=== PATIENT | female | born 1990 | race Caucasian/White ===

== ENCOUNTER 2019-02-21 05:23 | Inpatient (IN) ==
--- NOTE | 2019-02-20 13:57 | History & Physical Report ---
Date of Service February 20, 2019 Assessment & Plan (1) Breech presentation: For primary LTCS because of breech presentation. The procedure & risks were reviewed with the patient . All questions were answered. Present on Admission?: Yes (2) Supervision of normal first : History of Present Illness Primary Care Provider: NO PCP Patient is a white female EDC 02/17/19 who presents for primary LTCS for breech presentation noted on exam last week. no contractions or cramping at this time. uncomplicated otherwise. GBS-NEGATIVE, O POSITIVE Allergies Allergy/AdvReac Type Severity Reaction Status Date / Time amoxicillin Allergy Verified 02/20/19 10:04 cefaclor [From Ceclor] Allergy Verified 02/20/19 10:04 Home Medications Home Medications Medication Instructions Recorded Confirmed Type No Known Home Medications 02/17/19 02/20/19 History Patient History Medical History No known health problems Surgical History History of shoulder surgery right Social History Preferred Language: Sinhala Communication Ability: Effective Oxyhydrogen Welder Required: No Beliefs That Will Affect Care: None marital status: Current Living Situation: Spouse Feels Safe at Home: Yes Smoking Status: Never smoker Second Hand Exposure: No ; Hx Alcohol Use: No Hx Substance Use: No Review of Systems All systems reviewed & are unremarkable except as noted in HPI & below Physical Exam Constitutional: WD/WN, vitals as above Respiratory: normal respiratory effort, lungs clear to auscultation Cardiovascular: RRR, no murmur, no edema Extremities: no calf tenderness Gastrointestinal (Abdomen): normal bowel sounds, soft, nontender, no hepatosplenomegaly Psychiatric: A+Ox3, euthymic affect Genitourinary: OB Exam Abdomen: + fundal height (39), + vertex, + breech and + estimated weight (8-9 pounds) Manual OB Exam: + cervical dilation fingertip, + cervical effacement 50% and + station high OB Exam Monitor Tr acing: + external FHT monitor used, + external uterine monitor used, + category I and + normal FHT variability
[2019-02-21 05:43] LABS: Basophils # (auto) 0.02 K/uL (0-0.2); Basophils % (auto) 0.2 %; Eosinophils # (auto) 0.13 K/uL (0-0.5); Hematocrit (blood only) 34.6 % (37-47); Hemoglobin 11.7 g/dL (12.0-16.0); Immature Granulocytes # (auto) 0.06 K/uL (0.00-0.02); Immature Granulocytes % (auto) 0.5 %; Lymphocytes # (auto) 2.48 K/uL (1.2-3.4); Mean Corpuscular Hemoglobin 29.4 pg (25-34); Mean Corpuscular Volume 86.9 fL (80-100); Mean Platelet Volume 11.9 fL (7.4-10.4); Monocytes # (auto) 1.06 K/uL (0.11-0.59); Monocytes % (auto) 8.1 %; Neutrophils # (auto) 9.27 K/uL (1.4-6.5); Neutrophils % (auto) 71.2 %; Platelet Count 199 K/uL (130-400); RDW Coefficient of Variation 13.5 % (11.5-14.5); RDW Standard Deviation 42.9 fL (36.4-46.3); Red Blood Count 3.98 M/uL (4.2-5.4); White Blood Count 13.02 K/uL (4.8-10.8)
[2019-02-21] MEDS ORDERED: LACTATED RINGER'S 1,000 ML IV SCH ×4 (05:45→09:00)
[2019-02-21 05:58] LABS: Mean Corpuscular Hgb Conc 33.8 g/dL (32-36)
[2019-02-21] MEDS ORDERED: CITRIC ACID/SODIUM CITRATE 15 ML UDC PO SCH ×2 (06:00)
[2019-02-21] MEDS ORDERED: MoRPHine SULFATE PF 1 MG/ML 10 ML AMP/VIAL ONE (06:56)
[2019-02-21] MEDS ORDERED: fentaNYL citrate 100 MCG/2 ML VIAL ONE (06:56)
--- NOTE | 2019-02-21 07:01 | Anesthesiology Consultation ---
Date of Service February 21, 2019 Assessment & Plan (1) Encounter for pre-operative examination: Chart Review Chart Review: Acceptable Risk for Surgery and Patient NOT seen in Pre Admission Testing Consults Requested none History Surgery Operation Date: 02/21/19 07:30 Proposed Procedures p Section in LD - Shahida Benavidez MD, FACOG Height/Weight Height: 5 ft 4 in Weight: 90.718 kg Allergies Allergy/AdvReac Type Severity Reaction Status Date / Time amoxicillin Allergy Intermediate Hives Verified 02/21/19 05:35 cefaclor [From Ceclor] Allergy Intermediate Hives Verified 02/21/19 05:35 Medications Home Medications Medication Instructions Recorded Confirmed Last Taken No Known Home Medications 02/17/19 02/20/19 Unknown NPO Date Last Intake of Fluids: 02/20/19 Time Last Intake of Fluids: 20:00 Date Last Intake of Solids: 02/20/19 Time Last Intake of Solids: 20:00 Past Medical History Medical History No known health problems Exercise / Class Metabolic Activity II 4-5 Yardwork/Stairs/Walk up hill Past Family History Family History Father Heart disease Past Surgical History Surgical History History of shoulder surgery right Past Anesthesia History No Hx of Anesthesia Complications and No Family Hx of Anesthesia Complications History of PONV No Hx of PONV and No Hx of Motion Sickness Social History Smoking Status: Never smoker Do You Dip or Chew Tobacco: No Hx Alcohol Use: No Hx Substance Use: No substance use type: does not use Physical Exam Vital Signs Last Vital Signs Temp 36.8 C 02/21/19 05:36 Pulse 74 02/21/19 06:48 Resp 18 02/21/19 05:36 BP 146/86 H 02/21/19 06:48 Testing Laboratory Results 02/21/19 05:34 Blood Type O Positive 02/21/19 05:34 Antibody Screen NEGATIVE 02/21/19 05:34
[2019-02-21] MEDS ORDERED: CLINDAMYCIN 900 MG in DEXTROSE 5% 50 ML IV ONE (07:27)
--- NOTE | 2019-02-21 07:27 | History & Physical Bridge Note ---
Date of Service February 21, 2019 History & Physical Bridge Note I have examined the patient, reviewed the History & Physical and in the interval since the performance of the History & Physical I have noted the following changes of clinical significance: no changes noted
[2019-02-21] MEDS ORDERED: MoRPHine SULFATE 2 MG/ML CARP IV PRN (08:11)
[2019-02-21] MEDS ORDERED: NALOXONE HCL 0.4 MG/1 ML VIAL/CARP IV PRN (08:11)
[2019-02-21] MEDS ORDERED: ePHEDrine sulfate 50 MG/ML AMP IV PRN (08:11)
[2019-02-21] MEDS ORDERED: NALBUPHINE HCL INJ 10 MG/ML AMP IV PRN (08:11)
[2019-02-21] MEDS ORDERED: NALOXONE HCL 1 MG in SODIUM CHLORIDE 0.9% 1000ML 1,000 ML IV PRN (08:11)
[2019-02-21] MEDS ORDERED: NALOXONE HCL 0.08 MG in SYRINGE 1.8 ML IV PRN (08:11)
[2019-02-21] MEDS ORDERED: LACTATED RINGER'S 500 ML IV PRN (08:11)
[2019-02-21] MEDS ORDERED: HYDROmorphone INJ 0.5 MG/0.5 ML SYR IV PRN (08:11)
[2019-02-21] MEDS ORDERED: ONDANSETRON INJ 2 MG/ML 2 ML VIAL IV PRN (08:11)
[2019-02-21] MEDS ORDERED: MoRPHine SULFATE PF 1 MG/ML 10 ML AMP/VIAL INT SPINAL ONE (08:11)
[2019-02-21] MEDS ORDERED: SODIUM CHLORIDE 0.9% 1000ML 1,000 ML IV SCH (08:15)
[2019-02-21] MEDS ORDERED: DC INTRASPINAL MORPHINE SCH (08:15)
[2019-02-21] MEDS ORDERED: NO NARCOTICS OR SEDATIVES SCH (08:15)
[2019-02-21] MEDS ORDERED: ONDANSETRON INJ 2 MG/ML 2 ML VIAL ONE (08:41)
[2019-02-21] MEDS ORDERED: OXYTOCIN 10 UNITS/ML VIAL ONE (08:41)
[2019-02-21] MEDS ORDERED: PHENYLEPHRINE 100MCG/ML 5ML SYR ONE (08:41)
[2019-02-21] MEDS ORDERED: MAGNESIUM HYDROXIDE SUSP 30 ML UDC PO PRN (08:59)
[2019-02-21] MEDS ORDERED: PROMETHAZINE HCL 25 MG in SODIUM CHLORIDE 0.9% 50 ML IV PRN (08:59)
[2019-02-21] MEDS ORDERED: HYDROCORTISONE ACETATE 25 MG SUPP PR PRN (08:59)
[2019-02-21] MEDS ORDERED: DIPHTHERIA/TETANUS/PERTUSSIS 0.5 ML SYR/VIAL IM ONE (08:59)
[2019-02-21] MEDS ORDERED: SUPERCREAM 0.870% 15 GM JAR EXT PRN (08:59)
[2019-02-21] MEDS ORDERED: BENZOCAINE 20% AER SPR 82.5 GM CAN EXT PRN (08:59)
[2019-02-21] MEDS ORDERED: SENNA 8.6 MG TAB PO PRN (08:59)
--- NOTE | 2019-02-21 09:03 | Post Operative Brief Note ---
PG Immediate Post Op with CF Date of Surgery February 21, 2019 Pre & Post Diagnosis Operation Date: 02/21/19 07:30 Pre-Op Diagnosis: Breech presentation at term. Post-Op Diagnosis: Breech presentation at term. LMC born at 0826 stable condition to sanders. I identified the patient and participated in the time-out.: Yes Procedure Operation Date: 02/21/19 07:30 Actual Procedures p Section in LD - Shahida Benavidez MD, FACOG Surgeon Shahida Benavidez MD, FACOG Children'S Librarian Mary Ernandez MD Estimated Blood Loss 450 Findings Consistent with Post-Op Diagnosis Specimens Specimen Description: Placenta (Hold) Cord Blood Drains Valle Catheter
--- NOTE | 2019-02-21 09:13 | Anesthesiology Progress Note ---
Date of Service February 21, 2019 Anesthesia Post Procedure Vital Signs Vital Signs: Temp Pulse Resp BP Pulse Ox 02/21/19 09:08 83 131/77 100 02/21/19 07:07 94 H 20 152/93 H 02/21/19 07:06 89 137/93 02/21/19 06:48 74 146/86 H 02/21/19 06:33 75 139/88 02/21/19 06:18 80 140/86 02/21/19 06:03 76 146/107 H 02/21/19 05:49 88 135/108 H 02/21/19 05:48 83 139/109 H 02/21/19 05:36 36.8 C 18 02/21/19 05:32 88 156/102 H Transfer of Care Handoff Completed per policy Notes Mental Status: alert / awake / arousable Patient Amnestic to Procedure: No Nausea / Vomiting: adequately controlled Pain: adequately controlled Airway Patency, RR, SpO2: stable & adequate BP & HR: stable & adequate Hydration State: stable & adequate Neuraxial Anesthesia: was administered and sensory block is resolving Anesthetic Complications: no major complications apparent and Pt Satisfied with anesthetic care
[2019-02-21] MEDS ORDERED: OXYTOCIN 20 UNITS in LACTATED RINGER'S 1,000 ML IV SCH (10:00)
[2019-02-21] MEDS: KETOROLAC 30 MG/ML VIAL IV PRN (11:16)
[2019-02-21] MEDS: DiphenhydrAMINE HCL 50 MG/ML VIAL IV PRN ×2 (11:19→18:56)
[2019-02-21] MEDS: OXYTOCIN 20 UNITS in LACTATED RINGER'S 1,000 ML IV SCH ×2 (11:23→19:37)
--- NOTE | 2019-02-21 12:09 | Operative Report ---
DATE OF OPERATION: 02/21/2019 SURGEON: Shahida Bryson MD. SLIDE FASTENER REPAIRER: Mary Ernandez MD. PREOPERATIVE DIAGNOSES: Intrauterine at term with persistent breech presentation. POSTOPERATIVE DIAGNOSES: Intrauterine at term with persistent breech presentation, delivery of a viable male infant, 9 pounds 5 ounces. PROCEDURE: Primary low transverse section. ESTIMATED BLOOD LOSS: 450 mL. ANESTHESIA: Subarachnoid block. HISTORY: The patient is a 3, para 0-0-1-0 white female, EDC of 02/17/2019 who presents for primary section because of persistent breech presentation. The patient understands the risks of the procedure and is willing to proceed. GROSS FINDINGS: Uterus is gravid and consistent with a term in size. Bilateral ovaries and fallopian tubes are grossly normal. DESCRIPTION OF PROCEDURE: After the patient received adequate subarachnoid block, she was prepped and draped in usual sterile fashion. The low transverse skin incision was made with a scalpel and carried to the fascia with the same scalpel. The fascial incision was then extended with Medina scissors and the edges were then grasped with Nestor clamps and the underlying rectus muscles bluntly and sharply dissected off of the overlying fascia. The rectus muscles were divided in the midline and the underlying peritoneum elevated and entered bluntly. The bladder was then taken down off the anterior surface of the uterus and placed behind the bladder blade. This was done with Metzenbaum scissors. The lower uterine segment was entered with the scalpel and this incision was extended transversely. The membranes were ruptured for clear fluid. The was delivered from the kannan breech presentation with moderate fundal pressure. The was delivered to the head, nuchal arms were reduced and the rest of the baby delivered easily. Cord was clamped and cut and the was handed off to Dr. Tanner who was in attendance as clinical operations leader. There was spontaneous crying and the infant was moving all 4 limbs. The placenta was expressed intact with a 3-vessel cord. The uterus was then exteriorized and covered with a clean lap sponge. The uterine cavity was then explored and found to be free of any placental tissue or membranes. The uterus was closed in 2 layers in a running locking imbricating fashion with 0 Monocryl. Hemostasis was noted to be excellent. The posterior cul-de-sac was irrigated with normal saline. The incision was examined once more and continued to have excellent hemostasis. The uterus was placed back in the abdominal cavity. Hemostasis continued to be satisfactory. After the gutters were explored, the rectus muscles were brought together on the midline with individual stitches of 0 Monocryl. The fascia was closed in a running fashion with 0 Vicryl. After irrigating the adipose layer, the skin edges were reapproximated with a subcuticular stitch of 3-0 Vicryl. Urine was clear at the end of the case. Mother and were doing well on arrival in recovery. I attest to the content of the Intraoperative Record and any orders documented therein. Any exception s are noted below.
[2019-02-21] MEDS: SIMETHICONE 80 MG CHEW PO SCH ×3 (14:28→21:01)
[2019-02-21] MEDS: DOCUSATE SODIUM 100 MG CAP PO SCH (21:01)
[2019-02-22] MEDS: KETOROLAC 30 MG/ML VIAL IV PRN (02:01)
[2019-02-22] MEDS ORDERED: MEPERIDINE HCL 50 MG/ML CARP IV PRN (02:12)
[2019-02-22] MEDS ORDERED: KETOROLAC 30 MG/ML VIAL IV PRN (02:12)
[2019-02-22] MEDS ORDERED: ZOLPIDEM TARTRATE 5 MG TAB PO PRN (02:12)
[2019-02-22] MEDS ORDERED: ONDANSETRON INJ 2 MG/ML 2 ML VIAL IV PRN (02:12)
[2019-02-22] MEDS ORDERED: DiphenhydrAMINE HCL 50 MG/ML VIAL IV PRN (02:12)
[2019-02-22] MEDS ORDERED: OXYCODONE/ACETAMINOPHEN 5mg/325mg TAB PO PRN (02:12)
--- NOTE | 2019-02-22 06:22 | Obstetrical Progress Note ---
Date of Service <Gudelia Choi MD - Last Filed: 02/22/19 07:41> February 22, 2019 Assessment & Plan <Gudelia Choi MD - Last Filed: 02/22/19 07:41> (1) Encounter for postoperative care: - POD1 s/p C/S for breech presentation of . - doing well this morning - hg stable at 11.7 - not complaining of any pain or SOB - feels hot subjectively but afebrile - passed gas but no urination yet - tolerating oral intake of regular diet - Day #:: 1 Subjective <Gudelia Choi MD - Last Filed: 02/22/19 07:41> Ambulation: ambulating normally Voiding: voiding difficulty (Has not voided yet) Passing Gas:: Yes Diet Tolerance:: regular diet Feeding Type:: breast feeding Current Pain Level(1-10): 0 Constitutional: + fatigue; no fever and no chills Respiratory: no cough and no dyspnea No shortness of breath Cardiovascular: no chest pain, no syncope, no edema and no calf pain Breast: no breast pain Gastrointestinal: no abdominal pain, no nausea, no vomiting, no cramping, no constipation and no diarrhea/loose stools Genitourinary (female): no dysuria and no difficulty urinating Neurologic: no headache(s) Physical Exam <Gudelia Choi MD - Last Filed: 02/22/19 07:41> Constitutional well developed and well nourished Respiratory normal respiratory effort; no respiratory distress, no labored breathing and no cough Auscultation: no crackles, no rales, no rhonchi and no wheezes Cardiovascular Rate/Rhythm: regular rate and regular rhythm Heart Sounds: no gallop, no murmur and no cardiac rub Extremities: no pedal edema Gastrointestinal (Abdomen) Inspection/Auscultation: + abdomen distended and normal bowel sounds Percussion/Palpation: + abdomen tender and abdomen soft; no guarding Skin C/S incision appears to be healing well. Intact, no fluid or bloody leakage. Mildly tender to palpation around scar. Results & Data <Gudelia Choi MD - Last Filed: 02/22/19 07:41> Vital Signs (Past 12 Hours) Vital Signs Temp Pulse Resp BP Pulse Ox 02/22/19 03:00 37.2 C 82 16 111/76 97 02/21/19 23:15 37.3 C 87 16 117/78 96 02/21/19 22:50 18 96 02/21/19 21:44 18 96 02/21/19 20:46 20 98 02/21/19 19:40 37.3 C 89 20 127/76 96 <Shahida Benavidez MD, FACOG - Last Filed: 02/22/19 08:51> Co-Signing Physician Notes Resident Physician Supervision Note: I interviewed and examined the patient. Discussed with Dr. Choi and agree with findings and plan as documented in the note. Any exceptions or clarifications are listed here: [None] Documented By: Shahida Benavidez MD, FACOG
[2019-02-22 06:33] LABS: Basophils # (auto) 0.01 K/uL (0-0.2); Basophils % (auto) 0.1 %; Eosinophils % (auto) 0.7 %; Hematocrit (blood only) 28.5 % (37-47); Hemoglobin 9.9 g/dL (12.0-16.0); Immature Granulocytes # (auto) 0.05 K/uL (0.00-0.02); Immature Granulocytes % (auto) 0.3 %; Lymphocytes # (auto) 1.61 K/uL (1.2-3.4); Lymphocytes % (auto) 11.1 %; Mean Corpuscular Hemoglobin 30.1 pg (25-34); Mean Corpuscular Hgb Conc 34.7 g/dL (32-36); Mean Corpuscular Volume 86.6 fL (80-100); Mean Platelet Volume 11.9 fL (7.4-10.4); Monocytes # (auto) 1.02 K/uL (0.11-0.59); Monocytes % (auto) 7.1 %; Neutrophils # (auto) 11.67 K/uL (1.4-6.5); Neutrophils % (auto) 80.7 %; Platelet Count 158 K/uL (130-400); RDW Coefficient of Variation 13.7 % (11.5-14.5); RDW Standard Deviation 43.1 fL (36.4-46.3); Red Blood Count 3.29 M/uL (4.2-5.4); White Blood Count 14.46 K/uL (4.8-10.8)
[2019-02-22] MEDS: FERROUS SULFATE 325 MG TAB PO SCH (07:57)
[2019-02-22] MEDS: PRENATAL VITAMIN 1 TAB PO SCH (07:57)
[2019-02-22] MEDS: DOCUSATE SODIUM 100 MG CAP PO SCH ×2 (07:58→20:39)
[2019-02-22] MEDS: SIMETHICONE 80 MG CHEW PO SCH ×4 (07:58→20:40)
[2019-02-22] MEDS: IBUPROFEN 600 MG TAB PO PRN ×2 (10:39→18:42)
--- NOTE | 2019-02-22 11:04 | Anesthesiology Progress Note ---
Date of Service February 22, 2019 Anesthesia Post Procedure Vital Signs Vital Signs: Temp Pulse Pulse Resp BP BP Pulse Ox 02/22/19 07:48 98.4 F 86 16 125/85 98 02/22/19 03:00 99.0 F 82 16 111/76 97 02/21/19 23:15 99.1 F 87 16 117/78 96 02/21/19 22:50 18 96 02/21/19 21:44 18 96 02/21/19 20:46 20 98 02/21/19 19:40 99.1 F 89 20 127/76 96 02/21/19 18:04 20 96 02/21/19 17:21 18 98 02/21/19 16:45 18 97 02/21/19 15:29 20 98 02/21/19 14:35 73 18 131/83 98 02/21/19 13:35 80 18 127/81 94 02/21/19 12:35 76 18 131/84 99 02/21/19 12:05 80 18 154/96 H 100 02/21/19 11:38 98.2 F 76 16 148/95 H 100 02/21/19 11:23 83 100 02/21/19 11:20 75 145/78 H 02/21/19 11:18 80 100 02/21/19 11:13 82 100 02/21/19 11:08 75 126/68 99 Transfer of Care Handoff Completed per policy Notes Mental Status: alert / awake / arousable and participated in evaluation Nausea / Vomiting: adequately controlled Pain: adequately controlled Airway Patency, RR, SpO2: stable & adequate BP & HR: stable & adequate Hydration State: stable & adequate Neuraxial Anesthesia: was administered and sensory block resolved Anesthetic Complications: no major complications apparent and Pt Satisfied with anesthetic care
[2019-02-22] MEDS ORDERED: bisacodyL 5 MG TABEC PO SCH (20:00)
[2019-02-23] MEDS: IBUPROFEN 600 MG TAB PO PRN ×2 (02:58→08:12)
[2019-02-23] MEDS: ACETAMINOPHEN 500 MG TAB PO PRN ×2 (03:46→08:13)
--- NOTE | 2019-02-23 06:34 | Obstetrical Progress Note ---
Date of Service <Gudelia Choi MD - Last Filed: 02/23/19 08:10> February 23, 2019 Assessment & Plan <Gudelia Choi MD - Last Filed: 02/23/19 08:10> (1) Encounter for postoperative care: 28 yo POD2 after LTCS for breech presentation. Doing well this AM, no acute complaints. Continue supportive care as needed. Day #:: 2 Subjective <Gudelia Choi MD - Last Filed: 02/23/19 08:10> Ambulation: ambulating normally Voiding: no voiding problems Passing Gas:: Yes Diet Tolerance:: regular diet Feeding Type:: breast feeding Current Pain Level(1-10): 0 28 yo POD2 after LTCS for breech presentation. Doing well this AM, no acute complaints. Constitutional: + fatigue; no fever and no chills Respiratory: no cough and no dyspnea No shortness of breath Cardiovascular: + edema; no chest pain, no syncope and no calf pain Breast: no breast pain Gastrointestinal: + cramping; no abdominal pain, no nausea, no vomiting, no constipation and no diarrhea/loose stools Genitourinary (female): no dysuria and no difficulty urinating Neurologic: no headache(s) Physical Exam <Gudelia Choi MD - Last Filed: 02/23/19 08:10> Constitutional well developed and well nourished Respiratory normal respiratory effort; no respiratory distress, no labored breathing and no cough Auscultation: no crackles, no rales, no rhonchi and no wheezes Cardiovascular Rate/Rhythm: regular rate and regular rhythm Heart Sounds: no gallop, no murmur and no cardiac rub Extremities: + pedal edema Gastrointestinal (Abdomen) Inspection/Auscultation: + abdomen distended and normal bowel sounds Percussion/Palpation: + abdomen tender and abdomen soft; no guarding Skin C/S incision appears to be healing well. No erythema around incision. Intact, no fluid or bloody leakage. Mildly tender to palpation around scar. Genitourinary Uterus firm, palpable at right of umbilicus, some tenderness to palpation. Results & Data <Gudelia Choi MD - Last Filed: 02/23/19 08:10> Vital Signs (Past 12 Hours) Vital Signs Temp Pulse Resp BP Pulse Ox 02/23/19 00:03 36.8 C 74 16 135/86 97 <Bren Martínez MD, FACOG - Last Filed: 02/23/19 08:24> Co-Signing Physician Notes Resident Physician Supervision Note: I was present with Dr. Choi during the history and exam. I discussed the case with the resident and agree with the findings and plan as documented in the note. Any exceptions or clarifications are listed here: doing well, eating, drinking, voiding, +flatus, pain well controlled. ff 2 down nt, incision c/d/i, reviewed d/c instructions and sent script. enc routine care but she may request d/c later today. . Documented By: Bren Martínez MD, FACOG
[2019-02-23 06:54] LABS: Hematocrit (blood only) 29.3 % (37-47); Hemoglobin 9.9 g/dL (12.0-16.0)
[2019-02-23] MEDS: DOCUSATE SODIUM 100 MG CAP PO SCH (08:12)
[2019-02-23] MEDS: SIMETHICONE 80 MG CHEW PO SCH (08:12)
[2019-02-23] MEDS: FERROUS SULFATE 325 MG TAB PO SCH (08:12)
[2019-02-23] MEDS: PRENATAL VITAMIN 1 TAB PO SCH (08:12)
[2019-02-23 08:54] VITALS: O2SAT 98
[2019-02-23] MEDS ORDERED: bisacodyL 10 MG SUPP PR PRN (08:59)
[2019-02-23 16:55] VITALS: BP 139/74; PULSE 74; TEMP 98.1
--- NOTE | 2019-02-24 20:43 | Discharge Summary ---
PRINCIPAL DIAGNOSIS: Intrauterine at term with persistent breech presentation. PRINCIPAL PROCEDURE: A primary low transverse section for delivery of a viable male infant, 9 pounds 5 ounces. HISTORY: The patient is a 2, para 0-0-1-0 white female, EDC of 02/17/2019, who presented for primary section because of persistent breech presentation. This was done without any complications. The patient had an uncomplicated postop course. She was afebrile throughout her hospital stay. She was eating a regular diet, voiding and ambulating without difficulty on her 1st postop day. Hemoglobin on admission was 11.7, hematocrit 34.6; first postop day hemoglobin 9.9, hematocrit 28.5; second postop day hemoglobin 9.9, hematocrit 29.3. She was sent home in good condition with prescriptions for Percocet 1 or 2 tablets p.o. q. 4 hours p.r.n. pain and ibuprofen 600 mg p.o. q. 4 hours p.r.n. pain. She is to be seen in the office in 6 weeks for followup visit. She is to call for a temperature of 101 degrees or higher, heavy vaginal bleeding, burning with urination, increased redness, drainage or pain in her incision, calf tenderness, or any other concerns.
== END 2019-02-23 17:02 | disposition home or self-care (01) | DRG 788 ==
LOC: 4S1 05:23 → EDSTATUS 07:30 → 4S2 11:40

== ENCOUNTER 2022-09-18 05:28 | Inpatient (IN) ==
--- NOTE | 2022-09-09 10:59 | Anesthesiology Consultation ---
Date of Service September 09, 2022 Assessment & Plan (1) Encounter for pre-operative examination: - 02/21/19 SAB L4-L5 1 attempt. - COVID screening: Per level vial inspector on 09/09/2022: Travel screen negative, no known COVID-19 positive contacts or current COVID-19 related symptoms in past 2 weeks. To surgeon's discretion if preop COVID testing is needed. Chart Review Chart Review: Acceptable Risk for Surgery and Patient NOT seen in Pre Admission Testing History Surgery Operation Date: 09/18/22 07:30 Proposed Procedures p Section in LD (Delivery of Baby through Abdominal Incision) - Brooks Snell MD Height/Weight Height: 5 ft 5 in Weight: 91.626 kg Allergies Allergy/AdvReac Type Severity Reaction Status Date / Time amoxicillin Allergy Intermediate Hives Verified 09/09/22 10:14 cefaclor [From Ceclor] Allergy Intermediate Hives Verified 09/09/22 10:14 Medications Home Medications Medication Instructions Recorded Confirmed Last Taken prenat.vits,demetria,ipq-tnne-adpml 1 tab PO DAILY 02/03/22 09/09/22 Unknown acetone (urine) test (Ketone Urine #50 ea 07/20/22 09/02/22 Unknown Test strips) blood sugar diagnostic (OneTouch #150 ea 07/20/22 09/02/22 Unknown Verio test strips) blood-glucose meter (OneTouch #1 ea 07/20/22 09/02/22 Unknown Verio Reflect Meter) lancets 33 gauge (OneTouch Delica #150 ea 07/20/22 09/02/22 Unknown Lancets) Past Medical History Medical History (Updated 09/09/22 @ 10:56 by Olivia Reid PA-C) Gestational diabetes History of chicken pox Past Family History Family History Father Heart disease Other No family history of adverse response to anesthesia Denies family history of Ovarian cancer Breast cancer Colorectal cancer Past Surgical History Surgical History History of shoulder surgery RT S/P section X 1 Social History Smoking Status: Never smoker Do You Dip or Chew Tobacco: No Hx Alcohol Use: No Hx Substance Use: No substance use type: does not use
[2022-09-18] MEDS ORDERED: CITRIC ACID/SODIUM CITRATE 15 ML UDC PO SCH (06:00)
[2022-09-18] MEDS ORDERED: LACTATED RINGER'S 1,000 ML IV SCH ×2 (06:00→08:15)
[2022-09-18] MEDS ORDERED: CLINDA 900 MG **Premixed Bag IV SCH (06:00)
[2022-09-18] MEDS ORDERED: GENTAMICIN SULFATE 460 MG in DEXTROSE 5% 100 ML IV SCH (06:00)
[2022-09-18 06:27] LABS: Hematocrit (blood only) 34.2 % (37.0-47.0); Hemoglobin 11.6 g/dl (12.0-16.0); Mean Corpuscular Hemoglobin 29.9 pg (25.0-34.0); Mean Corpuscular Hgb Conc 33.9 g/dL (32.0-36.0); Mean Corpuscular Volume 88.1 fL (80.0-100.0); Mean Platelet Volume 12.3 fL (9.4-12.4); Platelet Count 214 K/uL (130-400); RDW Coefficient of Variation 13.2 % (11.5-14.5); RDW Standard Deviation 41.5 fL (36.4-46.3); Red Blood Count 3.88 M/uL (4.20-5.40); White Blood Count 13.69 K/ul (4.8-10.8)
[2022-09-18] MEDS ORDERED: OXYTOCIN 10 UNITS/ML 10ML VIAL ONE (06:46)
[2022-09-18] MEDS ORDERED: fentaNYL citrate PF 100 MCG/2 ML VIAL ONE (06:46)
[2022-09-18] MEDS ORDERED: PHENYLEPHRINE 100MCG/ML 5ML SYR ONE (06:46)
[2022-09-18] MEDS ORDERED: ONDANSETRON INJ 2 MG/ML 2 ML VIAL ONE (06:46)
[2022-09-18] MEDS ORDERED: MoRPHine SULFATE PF 1 MG/ML 10 ML AMP/VIAL ONE (06:46)
--- NOTE | 2022-09-18 07:31 | History & Physical Report ---
Date of Service September 18, 2022 Assessment & Plan (1) Supervision of normal first : Plan: Barb is a 32yo at 40w3d presents for repeat LTCS. 1. Fetus: Cat 1 2. Delivery: consents reviewed and signed yesterday 3. Vitals: WNL (2) Gestational diabetes: Admission and Anticipated Discharge Date Admission Date: September 18, 2022 History of Present Illness Primary Care Provider: NO PCP Barb is a 32yo at 40w3d presents for repeat LTCS. complications: Previous (breech) - C/S SCHEDULED FOR 09/18/[address] NOE VIVAS - Gestational Diabetes Growth u/s's q 4 weeks Allergies Allergy/AdvReac Type Severity Reaction Status Date / Time amoxicillin Allergy Intermediate Hives Verified 09/18/22 05:39 cefaclor [From Ceclor] Allergy Intermediate Hives Verified 09/18/22 05:39 Home Medications Medication Instructions Recorded Confirmed Type prenat.vits,demetria,obh-fnik-azxvn 1 tab PO DAILY 02/03/22 09/17/22 History acetone (urine) test (Ketone Urine #50 ea 07/20/22 09/17/22 Rx Test strips) blood sugar diagnostic (OneTouch #150 ea 07/20/22 09/17/22 Rx Verio test strips) blood-glucose meter (OneTouch #1 ea 07/20/22 09/17/22 Rx Verio Reflect Meter) lancets 33 gauge (OneTouch Delica #150 ea 07/20/22 09/17/22 Rx Lancets) Patient History Medical History Breech presentation Gestational diabetes History of chicken pox Surgical History History of shoulder surgery RT S/P section X 1 Family History Father Heart disease Other No family history of adverse response to anesthesia Denies family history of Ovarian cancer Breast cancer Colorectal cancer Social History (Updated 02/03/22 @ 13:34 by Christina Calloway) Smoking Status: Never smoker Second Hand Exposure: No; Do You Dip or Chew Tobacco: No; Hx Alcohol Use: No Hx Substance Use: No Preferred Language: Cymro Communication Ability: Effective Instrumentation Tech Required: No Beliefs That Will Affect Care: None marital status: marital status details: Anup Carter (30) [phone] Current Living Situation: Spouse and Family Current Living Situation Comment: 3.5 year old son Rizwan current occupational status: employed current occupation: [employer] Other Information That Helps Us Care for You: No Feels Safe at Home: Yes Safety Concerns: Feels Safe At This Time Assistive Devices: None Physical Exam Respiratory: normal respiratory effort, + respiratory distress and + labored breathing; no retractions Cardiovascular: Rate/Rhythm: regular rate Gastrointestinal (Abdomen): Inspection/Auscultation: abdomen normal to inspection; abdomen not distended Genitourinary: normal external appearance OB Exam Abdomen: + vertex Results & Data Vital Signs (Past 12 Hours) Vital Signs Temp Pulse Resp BP 09/18/22 06:23 79 128/82 09/18/22 06:14 36.8 C 70 20 140/86 09/18/22 05:44 85 150/90 H 09/18/22 05:39 36.8 C 85 20 150/90 H Code Status & VTE Plan VTE Prophylaxis Plan VTE Prophylaxis will be ordered: No Reason for no VTE drug order: Treatment not indicated Coding Level of Care Code None Diagnoses Supervision of normal first Z34.00 Gestational diabetes O24.419
[2022-09-18] MEDS ORDERED: MoRPHine SULFATE PF 1 MG/ML 10 ML AMP/VIAL INT SPINAL ONE (07:59)
[2022-09-18] MEDS ORDERED: NALOXONE HCL 0.08 MG in SYRINGE 1.8 ML IV PRN (07:59)
[2022-09-18] MEDS ORDERED: ePHEDrine sulfate 50 MG/ML AMP IV PRN (07:59)
[2022-09-18] MEDS ORDERED: PROMETHAZINE HCL 6.25 MG in SODIUM CHLORIDE 0.9% 50 ML IV PRN (07:59)
[2022-09-18] MEDS ORDERED: LACTATED RINGER'S 500 ML IV PRN (07:59)
[2022-09-18] MEDS ORDERED: NALOXONE HCL 1 MG in SODIUM CHLORIDE 0.9% 1000ML 1,000 ML IV PRN (07:59)
[2022-09-18] MEDS ORDERED: NALOXONE HCL 0.4 MG/1 ML VIAL/CARP IV PRN (07:59)
[2022-09-18] MEDS ORDERED: KETOROLAC 30 MG/ML VIAL IV PRN (07:59)
[2022-09-18] MEDS ORDERED: HYDROmorphone INJ 0.5 MG/0.5 ML SYR IV PRN (07:59)
[2022-09-18] MEDS ORDERED: diphenhydrAMINE 50 MG/ML VIAL IV PRN (07:59)
[2022-09-18] MEDS ORDERED: ONDANSETRON INJ 2 MG/ML 2 ML VIAL IV PRN (08:00)
[2022-09-18] MEDS ORDERED: DC INTRASPINAL MORPHINE SCH (08:00)
[2022-09-18] MEDS ORDERED: NO NARCOTICS OR SEDATIVES SCH (08:00)
[2022-09-18] MEDS ORDERED: SODIUM CHLORIDE 0.9% 1000ML 1,000 ML IV SCH (08:00)
[2022-09-18] MEDS ORDERED: BENZOCAINE 20% AER SPR 82.5 GM CAN EXT PRN (08:15)
[2022-09-18] MEDS ORDERED: MAGNESIUM HYDROXIDE SUSP 30 ML UDC PO PRN (08:15)
[2022-09-18] MEDS ORDERED: HYDROCORTISONE ACETATE 25 MG SUPP PR PRN (08:15)
[2022-09-18] MEDS ORDERED: DIPHTHERIA/TETANUS/PERTUSSIS Vaccine (Tdap, Age 7+yrs) 0.5mL SYR/VL IM ONE (08:15)
[2022-09-18] MEDS ORDERED: SENNA 8.6 MG TAB PO PRN (08:15)
--- NOTE | 2022-09-18 08:59 | Anesthesiology Progress Note ---
Date of Service September 18, 2022 Anesthesia Post Procedure Vital Signs Vital Signs: Temp Pulse Resp BP Pulse Ox 09/18/22 08:55 58 L 18 100 09/18/22 08:46 36.6 C 81 18 99 09/18/22 08:53 58 L 100 09/18/22 08:48 73 95 09/18/22 08:49 73 94 09/18/22 08:46 72 133/75 09/18/22 08:43 99 09/18/22 08:43 81 09/18/22 08:43 72 93 09/18/22 08:38 79 92 09/18/22 08:36 71 93 09/18/22 08:34 68 135/93 09/18/22 08:33 70 95 09/18/22 07:14 18 09/18/22 07:14 18 09/18/22 06:23 79 128/82 09/18/22 06:14 36.8 C 70 20 140/86 09/18/22 05:44 85 150/90 H 09/18/22 05:39 36.8 C 85 20 150/90 H Transfer of Care Handoff Completed per policy Notes Mental Status: alert / awake / arousable and participated in evaluation Patient Amnestic to Procedure: No Nausea / Vomiting: adequately controlled Pain: adequately controlled Airway Patency, RR, SpO2: stable & adequate BP & HR: stable & adequate Hydration State: stable & adequate Neuraxial Anesthesia: was administered and sensory block is resolving Anesthetic Complications: no major complications apparent and Pt Satisfied with anesthetic care
--- NOTE | 2022-09-18 09:10 | Post Operative Brief Note ---
PG Immediate Post Op with CF Date of Surgery September 18, 2022 Pre & Post Diagnosis Operation Date: 09/18/22 07:30 Pre-Op Diagnosis: Hx of Section Post-Op Diagnosis: Hx of Section I identified the patient and participated in the time-out.: Yes Procedure Operation Date: 09/18/22 07:30 Actual Procedures p Section in LD - Brooks Snell MD Surgeon Brooks Snell MD Flue Lining Dipper Dr. Ernandez Estimated Blood Loss 500 Findings Consistent with Post-Op Diagnosis Specimens Specimen Description: A) placenta Drains Valle Catheter (draining and anesthesia monitoring output during procedure ) OB Procedure charges OB Charges 47800
--- NOTE | 2022-09-18 09:48 | Operative Report (OR) ---
DATE OF SERVICE: 09/18/2022 PROCEDURE: Repeat low transverse section. PREOPERATIVE DIAGNOSES: 1. Term at 40 weeks 3 days gestational age. 2. History of section x1. 3. Gestational diabetes. POSTOPERATIVE DIAGNOSES: 1. Term at 40 weeks 3 days gestational age. 2. History of section x1. 3. Gestational diabetes. 4. Status post procedure. ESTIMATED BLOOD LOSS: 500 mL. DRAINS: Valle catheter. FLUIDS: Continuous lactated Ringer. URINE OUTPUT: Per Valle catheter. COMPLICATIONS: None. DESCRIPTION OF PROCEDURE: The patient was taken to the operating room after consents were ensured. Upon presentation, she was properly identified. Spinal anesthesia was obtained without difficulty. The patient was then prepped and draped in normal sterile fashion. Preprocedural time-out was perfor med. A Pfannenstiel incision was then made with a knife. This was carried down to underlying fascia with the Bovie. The fascia was nicked at the midline with a knife and extended laterally with milvia ps and Medina scissors. The superior aspect of the fascia was grasped with Kochmyah x2, elevated off th e underlying rectus muscles using blunt dissection and Medina scissors. The inferior aspect of the fas toya was grasped with Kochers x2, elevated off the underlying rectus muscles using blunt dissection. The midline was then entered bluntly, placed on stretch to provide adequate room for delivery. The b ladder flap was inserted and a low transverse uterine incision was then made with a knife. Head of t he was noted to be in cephalic position, delivered through the hysterotomy. Body and shoulder s quickly followed. was noted to be vigorous soon after delivery. Cord was double clamped a nd cut. was taken to the waiting nursery staff for evaluation. Cord segment and cord blood were obtained. Attention was then turned to delivery of the placenta, which was delivered intact, 3- vessel cord, gentle cord traction and uterine massage. Uterus was exteriorized, wrapped in a wet lap . Several passes were made with a dry lap to remove any remaining membranes. The hysterotomy was nati pproximated with 0 Vicryl continuous running locked stitch. A second imbricating layer was performed . Several [id number] were used to achieve hemostasis. Posterior cul-de-sac cleaned of clots a nd debris. Uterus returned to maternal abdomen. Right and left pericolic gutters were cleaned of cl ots and debris. The fascia was then reapproximated with 0 Vicryl continuous running stitch. The sub cutaneous layers were inspected and noted to be hemostatic. The subcutaneous layers were reapproxima shanna with 2-0 plain with continuous running stitch. The skin was reapproximated with 3-0 Vicryl with a continuous subcuticular stitch. Dermabond placed on top. Needle, sponge, and instrument counts we re correct at the completion of the case. Both mother and stable in the immediate post-deliv luz elena period. Job ID: [id number]
[2022-09-18] MEDS: OXYTOCIN 20 UNITS in LACTATED RINGER'S 1,000 ML IV SCH ×2 (11:11→19:06)
[2022-09-18] MEDS: NALBUPHINE HCL INJ 10 MG/ML AMP IV PRN ×2 (12:13→19:10)
[2022-09-18] MEDS: SIMETHICONE 80 MG CHEW PO SCH ×2 (17:50→20:55)
[2022-09-18] MEDS: DOCUSATE SODIUM 100 MG CAP PO SCH (20:55)
[2022-09-19] MEDS ORDERED: ONDANSETRON INJ 2 MG/ML 2 ML VIAL IV PRN (01:59)
[2022-09-19] MEDS ORDERED: diphenhydrAMINE 50 MG/ML VIAL IV PRN (01:59)
[2022-09-19] MEDS ORDERED: PROMETHAZINE HCL 25 MG in SODIUM CHLORIDE 0.9% 50 ML IV PRN (01:59)
[2022-09-19] MEDS ORDERED: KETOROLAC 30 MG/ML VIAL IV PRN (01:59)
[2022-09-19] MEDS ORDERED: MEPERIDINE HCL 50 MG/ML CARP IV PRN (01:59)
[2022-09-19] MEDS ORDERED: diphenhydrAMINE Capsule 25 MG CAP PO PRN (01:59)
[2022-09-19] MEDS: IBUPROFEN 600 MG TAB PO PRN ×2 (06:15→14:05)
[2022-09-19] MEDS: oxyCODONE/ACETAMINOPHEN 5mg/325mg TAB PO PRN ×2 (06:15→14:04)
[2022-09-19 07:07] LABS: Basophils # (auto) 0.02 K/uL (0-0.2); Basophils % (auto) 0.2 %; Eosinophils # (auto) 0.11 K/uL (0-0.50); Eosinophils % (auto) 0.8 %; Hematocrit (blood only) 31.7 % (37.0-47.0); Hemoglobin 10.9 g/dl (12.0-16.0); Immature Granulocytes # (auto) 0.05 K/uL (0.01-0.20); Immature Granulocytes % (auto) 0.4 %; Lymphocytes # (auto) 1.35 K/uL (1.2-3.4); Lymphocytes % (auto) 10.3 %; Mean Corpuscular Hemoglobin 29.8 pg (25.0-34.0); Mean Corpuscular Hgb Conc 34.4 g/dL (32.0-36.0); Mean Corpuscular Volume 86.6 fL (80.0-100.0); Mean Platelet Volume 12.3 fL (9.4-12.4); Monocytes # (auto) 0.84 K/uL (0.11-0.59); Monocytes % (auto) 6.4 %; Neutrophils # (auto) 10.76 K/uL (1.40-6.50); Neutrophils % (auto) 81.9 %; Platelet Count 179 K/uL (130-400); RDW Coefficient of Variation 13.1 % (11.5-14.5); RDW Standard Deviation 40.9 fL (36.4-46.3); Red Blood Count 3.66 M/uL (4.20-5.40); White Blood Count 13.13 K/ul (4.8-10.8)
--- NOTE | 2022-09-19 07:24 | Obstetrical Progress Note ---
Date of Service <Cora EDaniel Khan DO - Last Filed: 09/19/22 07:36> September 19, 2022 Assessment & Plan <Cora GastelumDaniel Khan DO - Last Filed: 09/19/22 07:36> (1) care following delivery: Patient is PPD 1 s/p repeat C section and doing well. - Eating well, voiding well, ambulating well - Vitals reviewed and within normal limits - Pain well controlled with analgesics - OOB, ambulation, diet progression as tolerated - Blood type: O+, GBS neg, rubella immune - Plan to discharge tomorrow - After discharge, [address] up [address] Dr[address] Snell <Brooks Snell MD - Last Filed: 09/19/22 08:04> (1) care following delivery: Subjective <Cora Quinonez DO Bill - Last Filed: 09/19/22 07:36> Patient is a 32 yo female is POD #1 following delivery at 40 3/7 weeks. She reports feeling well overall this morning. She endorses abdominal cramping and pain. She has not taken pain medications yet but plans to. Has not voided yet but feels as though she needs to. Tolerating fluids overnight (will try regular breakfast this AM) and able to ambulate to the bathroom. She has passed gas. Persistent lochia with some improvement this morning. Currently breast feeding. Review of Systems Denies fever, chills, sweats. Denies SOB, difficulty breathing, chest pain, palpitations, and chest pressure. Denies breast pain. Denies dysuria. Denies headache or changes in vision. Physical Exam <Cora Devi Khan DO - Last Filed: 09/19/22 07:36> General: Alert and oriented. No acute distress. CV: Regular rate and rhythm. No murmurs. Respiratory: CTA bilaterally. No rhonchi, wheezes, or crackles. No increased work of breathing. Abdomen: Positive bowel sounds. Soft, nontender, and nondistended. Uterus: Fundus firm and palpable 3 cm below umbilicus. Surgical scar clean and healing well. Lower extremities: No LE edema. No deep calf pain. Results & Data <Cora Khan DO - Last Filed: 09/19/22 07:36> Vital Signs (Past 12 Hours) Vital Signs Temp Pulse Resp BP Pulse Ox O2 Del Method 09/19/22 03:15 37.1 C 92 H 18 113/75 97 Room Air 09/19/22 02:00 18 97 09/19/22 00:00 18 96 09/18/22 23:00 18 96 09/18/22 23:00 37.1 C 86 18 107/68 96 Room Air 09/18/22 22:00 18 97 09/18/22 21:00 18 97 09/18/22 20:00 18 98 <Brooks Snell MD - Last Filed: 09/19/22 08:04> Co-Signing Physician Notes Patient seen with resident and agree with the above findings and plan. Routine care Resident Activity Tracking <Cora Khan DO - Last Filed: 09/19/22 07:36> Resident Involvement: Resident Care Provided Care Provided: OB Delivery
[2022-09-19] MEDS: PRENATAL VITAMIN 1 TAB PO SCH (08:45)
[2022-09-19] MEDS: FERROUS SULFATE 325 MG TAB PO SCH (08:45)
[2022-09-19] MEDS: SIMETHICONE 80 MG CHEW PO SCH ×3 (08:45→21:25)
[2022-09-19] MEDS: DOCUSATE SODIUM 100 MG CAP PO SCH ×2 (08:45→21:25)
[2022-09-19] MEDS ORDERED: bisacodyL 5 MG TABEC PO SCH (20:00)
[2022-09-20 06:36] LABS: Hematocrit (blood only) 32.6 % (37.0-47.0)
[2022-09-20] MEDS: PRENATAL VITAMIN 1 TAB PO SCH (07:45)
[2022-09-20] MEDS: FERROUS SULFATE 325 MG TAB PO SCH (07:45)
[2022-09-20] MEDS: oxyCODONE/ACETAMINOPHEN 5mg/325mg TAB PO PRN (07:45)
[2022-09-20] MEDS: DOCUSATE SODIUM 100 MG CAP PO SCH (07:45)
[2022-09-20] MEDS: SIMETHICONE 80 MG CHEW PO SCH (07:45)
[2022-09-20] MEDS: IBUPROFEN 600 MG TAB PO PRN (07:46)
[2022-09-20] MEDS ORDERED: bisacodyL 10 MG SUPP PR PRN (08:15)
--- NOTE | 2022-09-20 08:46 | Obstetrical Progress Note ---
Date of Service September 20, 2022 Assessment & Plan (1) care following delivery: Recovering well from RCS, feels ready to go home today, instructions reviewed and questions answered. Subjective Ambulation: ambulating normally Voiding: no voiding problems Passing Gas:: Yes Diet Tolerance:: regular diet Lochia:: Small Feeding Type:: breast feeding Physical Exam Constitutional WD/WN, vitals as above Eyes PERRL, conjunctivae normal, anicteric sclerae Neck normal visual inspection Respiratory normal respiratory effort and able to speak in complete sentences; no respiratory distress and no labored breathing Cardiovascular Rate/Rhythm: regular rate and regular rhythm Extremities: no edema Chest (Breasts) Chest: normal inspection of chest Gastrointestinal (Abdomen) Inspection/Auscultation: abdomen normal to inspection Per staff exams, patient not disturbed from breakfast tray over abdomen at time of my visit. Psychiatric A+Ox3, euthymic affect Results & Data Vital Signs (Past 12 Hours) Vital Signs Temp Pulse Resp BP 09/19/22 23:59 99.0 F 86 18 122/80
--- NOTE | 2022-10-02 10:54 | Discharge Summary (DS) ---
DATE OF ADMISSION: 09/18/2022. DATE OF DISCHARGE: 09/20/2022. HOSPITAL COURSE: The patient was admitted for scheduled repeat section. Procedure was perfo rmed without complication. The patient remained in-house until postoperative day #2 without any comp lications or concerns arising. The patient was discharged home in stable condition on postoperative day #2 and was provided with both written and verbal discharge instructions. The patient had planned followup at 6 weeks with instructions. Call if any other concerns arose. Job ID: [id number]
== END 2022-09-20 11:15 | disposition home or self-care (01) | DRG 788 ==
LOC: 4S1 05:28 → EDSTATUS 07:30 → 4E2 11:34